=== PATIENT | female | born 1995 | race Two or more races ===

== ENCOUNTER 2021-03-15 15:10 | Emergency (ER) | payer OTHER ==
[~2021-03-15] VITALS: Ht 154.9 cm; Wt 59.0 kg
== END 2021-03-15 18:44 | disposition home or self-care (01) ==
LOC: ER 15:10
DX: T20.00XA Burn of unspecified degree of head, face, and neck, unspecified site, initial encounter (principal); W40.1XXA Explosion of explosive gases, initial encounter; Y93.89 Activity, other specified; Y92.69 Other specified industrial and construction area as the place of occurrence of the external cause; Y99.8 Other external cause status